=== PATIENT | male | born 1975 | race Caucasian/White ===

== ENCOUNTER → 2016-10-19 | Outpatient (CLI) | payer OTHER ==
--- NOTE | 2016-10-26 19:34 | SLEEPHOME ---
DATE OF PROCEDURE: 10/19/2016 REFERRING PROVIDER: SAMSON Retana INTERPRETATION: Diagnostic home sleep testing was performed due to concern for sleep apnea syndrome with symptoms consisting of excessive daytime sleepiness, impaired cognition, mood disorders, snoring, morning headaches, and nonrestorative sleep. The patient had a previous home sleep study on 09/02/2016. However, the study was limited because of a long of period when SpO2 was not available and therefore hypopneas could not be determined. It was felt his risk for sleep apnea was high so the study was repeated. Portable home monitoring was performed using a NOX-T3 respiratory monitoring device. Continuous record was made of the pulse, oxygen saturation, air flow, chest and abdominal strain, and body position. A total recording time of 7 hours and 22 minutes was reviewed. During this interval, 82 apneic events of 10 seconds or greater were identified that were predominately obstructive in origin and 88 hypopneic events were identified of 10 seconds in duration or greater. This gives an index of 23.1. The patient's baseline saturation was 92% with a minimum recorded valve of 81%. Average pulse rate was 72 beats per minute. The patient spent most of the study in the non-supine position, although a significant amount of supine sleep was also observed. IMPRESSION: Abnormal home sleep test with repetitive respiratory events. The index was 23.1. Oxygen saturation modesta of 81%. RECOMMENDATIONS: The above findings are consistent with obstructive sleep apnea. Recommend formal polysomnogram for the determination of pressure therapy. Edited 10/30/16 1157 wilfredo GUY
== END ==
LOC: M SLEEP HO 12:00
PROVIDERS: ATTEND Internal Medicine Pulmonary Disease
DX: G47.30 Sleep apnea, unspecified (principal)

== ENCOUNTER → 2018-06-09 | Outpatient (REF) | payer OTHER ==
[2018-06-09 13:07] LABS: ALBUMIN 3.7 GM/DL (3.2-5.2); ALKALINE PHOSPHATASE 102 U/L (45-117); ALT/SGPT 40 U/L (12-78); ANION GAP 9 MEQ/L (8-16); AST/SGOT 19 U/L (7-37); BILIRUBIN,TOTAL 0.4 MG/DL (0.2-1.0); BLOOD UREA NITROGEN 13 MG/DL (7-18); CALCIUM LEVEL 8.6 MG/DL (8.5-10.1); CARBON DIOXIDE LEVEL 24 MEQ/L (21-32); CHLORIDE LEVEL 111 MEQ/L (98-107); CHOLESTEROL LEVEL 191 MG/DL (<200); CHOLESTEROL RISK RATIO 5.787 (<5); CREATININE FOR GFR 0.97 MG/DL (0.70-1.30); GLOMERULAR FILTRATION RATE > 60.0 (>60); GLUCOSE, FASTING 70 MG/DL (70-100); HDL CHOLESTEROL 33 MG/DL (>40); LDL CHOLESTEROL 126 MG/DL (<100); NON-HDL-C 158 MG/DL; POTASSIUM SERUM 4.7 MEQ/L (3.5-5.1); SODIUM LEVEL 144 MEQ/L (136-145); TOTAL PROTEIN 7.4 GM/DL (6.4-8.2); TRIGLYCERIDES LEVEL 161 MG/DL (<150)
[2018-06-09 13:16] LABS: HEMATOCRIT 47.4 % (42.0-52.0); MEAN CORPUSCULAR HEMOGLOBIN 30.9 pg (27.0-33.0); MEAN CORPUSCULAR HGB CONC 33.8 g/dl (32.0-36.5); MEAN CORPUSCULAR VOLUME 91.7 fl (80.0-96.0); PLATELET COUNT, AUTOMATED 244 10^3/uL (150-450); RED BLOOD COUNT 5.17 10^6/uL (4.30-6.10); RED CELL DISTRIBUTION WIDTH 11.8 % (11.5-14.5); WHITE BLOOD COUNT 7.1 10^3/uL (4.0-10.0)
== END ==
LOC: M SFHCPLAZ 08:50
DX: Z00.00 Encounter for general adult medical examination without abnormal findings (principal)

== ENCOUNTER → 2019-04-12 | Outpatient (CLI) | payer OTHER ==
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
== END ==
LOC: M PAIN 14:15
PROVIDERS: ATTEND Anesthesiology
DX: M25.512 Pain in left shoulder (principal); G89.29 Other chronic pain; M79.2 Neuralgia and neuritis, unspecified; G47.33 Obstructive sleep apnea (adult) (pediatric); F17.210 Nicotine dependence, cigarettes, uncomplicated; Z79.899 Other long term (current) drug therapy

== ENCOUNTER → 2020-02-27 | Outpatient (CLI) | payer OTHER ==
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
== END ==
LOC: M PAIN 09:45
PROVIDERS: ATTEND Family Medicine
DX: M25.512 Pain in left shoulder (principal)

== ENCOUNTER → 2020-03-26 | Outpatient (CLI) | payer OTHER ==
[~2020-03-26] MED LIST: DICL50TAB; GABA600T4 PO; HYDR-3713; IBUP200C25 PO; OMEP-221 PO; PERC5TAB12 PO
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
== END ==
LOC: M PAIN 09:30
PROVIDERS: ATTEND Family Medicine
DX: M25.512 Pain in left shoulder (principal)

== ENCOUNTER → 2020-04-23 | Outpatient (CLI) | payer OTHER | LOC: M PAIN 10:45 | PROVIDERS: ATTEND Family Medicine | DX: M25.512 Pain in left shoulder (principal) ==

== ENCOUNTER 2020-07-25 12:42 | Emergency (ER) | payer OTHER ==
[~2020-07-25] VITALS: Ht 167.6 cm; Wt 86.4 kg
[2020-07-25] MEDS ORDERED: DICL50TAB (13:09)
[2020-07-25] MEDS ORDERED: IBUP200C25 PO (13:09)
[2020-07-25] MEDS ORDERED: HYDR-3713 (13:09)
[2020-07-25] MEDS ORDERED: OMEP-221 PO (13:09)
[2020-07-25] MEDS ORDERED: GABA600T4 PO (13:09)
--- NOTE | 2020-07-25 13:45 | REP ---
INDICATION: trauma. COMPARISON: Left foot this date TECHNIQUE: Four views FINDINGS: Distal tibia and fibular without a displaced fracture. However there is prominent soft tissue swelling over the anterolateral aspect of the ankle. Talar dome shows no osteochondral defect and the mortise joint is preserved. Subtalar joints maintain their normal relationship. However, there is a comminuted fracture in the body and anterior process of the calcaneus possible subtalar extension. IMPRESSION: Prominent soft tissue swelling with anterolateral aspect of the ankle without definite fracture of the distal tibia or fibula and with the talus and mortise joint intact. There is a comminuted fracture of the body and anterior process of the calcaneus and some intra-articular extension to subtalar joint is suggested. The calcaneocuboid joint appears grossly intact. <Electronically signed by Jaime Grubbs > 07/25/20 [id number]
--- NOTE | 2020-07-25 13:51 | REP ---
INDICATION: trauma. COMPARISON: Ankle series today TECHNIQUE: Four views FINDINGS: Prominent soft tissue swelling lateral aspect of the ankle and hindfoot. Distal tibia and fibular without definite fracture. Talus is grossly intact. There is a comminuted fracture of the body and neck of the the calcaneus with extension to the subtalar joint. The calcaneocuboid articulation maintains its relationship. The talonavicular joint and navicular were intact there is an accessory ossicle medial to the navicular which has 2 parts. This could be a fracture of that accessory ossicle as there is swelling medially but also could represent a 2 part accessory ossicle without acute injury. The tarsal bones, metatarsals and phalanges are intact. IMPRESSION: Comminuted fracture of body and neck of the calcaneus with subtalar joint extension of the fracture and with grossly intact calcaneocuboid articulation. No definite talar fracture and the talonavicular joint, distal tibia and fibula appear grossly intact. The metatarsals, tarsal bones and phalanges with associated joints are intact. Accessory ossicle with fracture or two adjacent ossicles at the proximal medial aspect of the navicular. See comment above. <Electronically signed by Jaime Grubbs > 07/25/20 [id number]
--- NOTE | 2020-07-25 15:05 | REP ---
INDICATION: heel tenderness, fall from 6 ft ladder. COMPARISON: 08/01/2013 TECHNIQUE: Four views FINDINGS: The distal tibia and fibula are without visible of fracture. There is an os trigonum posterior to the talus. No gross evidence of fracture of the talus or calcaneus. Subtalar joints are intact there are smoothly marginated paired accessory ossicles adjacent to the medial head of the navicular. Talonavicular and calcaneocuboid joints are normal. The tarsal bones and articulations and the metatarsals are intact MTP joints, phalanges and IP joints intact IMPRESSION: 1. No evidence of fracture, avulsion, subluxation or other acute bony finding about the right foot <Electronically signed by Jaime Grubbs > 07/25/20 [id number]
[2020-07-25] MEDS ORDERED: MORPHINE 4 MG/ML 1ML VIAL/SYRINGE (J2270) IM ONE (15:15)
[2020-07-25] MEDS ORDERED: ONDANSETRON 4 MG ORAL DISINTEGRATING TAB PO ONE (15:15)
--- NOTE | 2020-07-25 15:22 | REP ---
INDICATION: fall from 6 ft ladder. COMPARISON: None. TECHNIQUE: Helical scanning is acquired and 4 mm axial images are generated. Coronal and sagittal MPR images are generated. FINDINGS: Lumbar vertebral body heights are preserved. Alignment is normal. There is degenerative disc disease with narrowing and vacuum phenomena at L5-S1. Mild diffuse central disc bulging is seen at L5-S1. There is no evidence of spondylolysis or spondylolisthesis. No vertebral body fracture or collapse is observed. No transverse process pedicle or posterior element fracture is seen. No paravertebral hematoma is appreciated. There are surgical clips visible in the right lower quadrant. Coronal and sagittal MPR images show no evidence of fracture. IMPRESSION: Degenerative disc disease at L5-S1 and to a lesser extent, L4-5. No traumatic abnormality noted. <Electronically signed by Josef Lomas > 07/25/20 [id number]
--- NOTE | 2020-07-25 15:53 | REP ---
INDICATION: further eval calcaneal fracture. COMPARISON: Ankle and foot series this date TECHNIQUE: Axial soft tissue and bone window through the ankle with coronal and sagittal bone window reconstructions FINDINGS: There is a severely comminuted fracture involving the body and neck/anterior process of the calcaneus are intra-articular extensions along its posterior subtalar aspect both anterior and posterior margins that joint articulation. There are a few small fragments from the fracture that may be into the joint proper posteriorly in the 1-2 mm range. Also fracture involvement of the articular aspect of the calcaneus at the cuboid and of anterior and middle subtalar joints fracture extensions are noted as well. Fractures through the base of the sustentacular. No subluxation or dislocation of the subtalar joints or hindfoot. Distal tibia and fibula were intact. The talus shows no fracture. The mortise joint was preserved. There is no osteochondral defect of the talar dome. A small Achilles insertion spur on the sagittal reconstructions is noted. The tarsal bones and proximal metatarsals included show no fracture. There are 2 small ossific densities adjacent to the medial margin of the navicular representing 2 separate ossific densities, not an acute fracture of 1 accessory ossicle. Prominent soft tissue swelling about the lateral ankle. IMPRESSION: Severely comminuted fracture of body of the calcaneus and its anterior process with intra-articular extension to all 3 components of the subtalar joint as well as the sustentaculum. Fracture line also reaches the calcanealcuboid joint but without fractures of the talus, distal tibia and fibula, tarsal bones or visible metatarsals. Multiple tiny fragments about this comminuted fracture noted and there may be a few intra-articular 2 mm foci in the posterior aspect of the posterior subtalar joint and joint recess behind it. <Electronically signed by Jaime Grubbs > 07/25/20 [id number]
[2020-07-25] MEDS ORDERED: PERCOCET 5MG/325MG TAB PO ONE (16:30)
[2020-07-25] MEDS ORDERED: PERC5TAB12 PO (16:35)
[2020-07-25 17:14] VITALS: BP 155/83
== END 2020-07-25 17:19 | disposition home or self-care (01) ==
LOC: M ED 12:42
DX: S92.002A Unspecified fracture of left calcaneus, initial encounter for closed fracture (principal); W11.XXXA Fall on and from ladder, initial encounter; Y92.9 Unspecified place or not applicable; Y93.9 Activity, unspecified; Y99.9 Unspecified external cause status; Z79.891 Long term (current) use of opiate analgesic; Z79.899 Other long term (current) drug therapy
CPT/HCPCS: 72131; 73610; 73630; 73700; 96372; 99284; J2270; Q0162

== ENCOUNTER → 2020-07-25 | Outpatient (CLI) | payer OTHER ==
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
== END ==
LOC: M PAIN 09:00
PROVIDERS: ATTEND Family Medicine
DX: M25.512 Pain in left shoulder (principal); G89.29 Other chronic pain; G47.33 Obstructive sleep apnea (adult) (pediatric); F17.210 Nicotine dependence, cigarettes, uncomplicated; Z79.899 Other long term (current) drug therapy

== ENCOUNTER → 2020-09-24 | Outpatient (CLI) | payer OTHER ==
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
== END ==
LOC: M PAIN 09:00
PROVIDERS: ATTEND Family Medicine
DX: M25.512 Pain in left shoulder (principal); G89.29 Other chronic pain; G47.33 Obstructive sleep apnea (adult) (pediatric); F17.210 Nicotine dependence, cigarettes, uncomplicated; Z79.899 Other long term (current) drug therapy

== ENCOUNTER → 2020-11-07 | Outpatient (CLI) | payer OTHER ==
[~2020-11-07] MED LIST changes: -HYDR-3713; +HYDR-3713 PO; +NO ITAB PO
== END ==
LOC: M LABSMTC 09:59
PROVIDERS: ATTEND Anesthesiology
DX: Z01.812 Encounter for preprocedural laboratory examination (principal); Z20.822 Contact with and (suspected) exposure to COVID-19

== ENCOUNTER 2020-11-12 08:17 | Day surgery (SDC) | payer OTHER ==
[~2020-11-12] VITALS: Ht 167.6 cm; Wt 89.4 kg
[~2020-11-12 08:17] MED LIST changes: +NS 1,000 ML IV ONE
[2020-11-12] MEDS ORDERED: DICL50TAB PO (09:10)
[2020-11-12] MEDS ORDERED: propofoL 200 MG/20 ML VIAL As Ordered ONE (09:50)
[2020-11-12] MEDS ORDERED: LIDOCAINE 2% 100MG/5ML SDV (FOR ANES.) As Ordered ONE (09:50)
--- NOTE | 2020-11-12 10:20 | ROOR ---
Patient Name: Felton Wild Procedure Date: 11/12/2020 10:01 AM Date of : 1975 Age: 45 Room: [facility] Gender: Male Note Status: Finalized Procedure: Colonoscopy Indications: Screening in patient at increased risk: Colorectal cancer in father before age 60 Providers: Ricco STERN MD Referring MD: Niharika Bansal NP Requesting Provider: Medicines: Monitored Anesthesia Care Complications: No immediate complications. Procedure: Pre-Anesthesia Assessment: - The heart rate, respiratory rate, oxygen saturations, blood pressure, adequacy of pulmonary ventilation, and response to care were monitored throughout the procedure. The Colonoscope was introduced through the anus and advanced to the terminal ileum, with identification of the appendiceal orifice and IC valve. The colonoscopy was performed without difficulty. The patient tolerated the procedure well. The quality of the bowel preparation was good. Findings: The perianal and digital rectal examinations were normal. A few small sigmoid diverticula and small internal hemorrhoids. The exam was otherwise without abnormality on direct and retroflexion views. Impression: - Minimal sigmoid diverticulosis and small internal hemorrhoids. - The examination was otherwise normal on direct and retroflexion views. - No specimens collected. Recommendation: - Repeat colonoscopy in 5 years for screening purposes. - Use fiber, for example Citrucel, Fibercon, Konsyl or Metamucil. Procedure Code(s): --- Professional --- 10785, Colonoscopy, flexible; diagnostic, including collection of specimen(s) by brushing or washing, when performed (separate procedure) Diagnosis Code(s): --- Professional --- Z80.0, Family history of malignant neoplasm of digestive organs CPT copyright 2019 [employer]. All rights reserved. The codes documented in this report are preliminary and upon physician coder review may be revised to meet current compliance requirements. Ricco Stern MD Ricco STERN MD 11/12/2020 10:20:25 AM Electronically signed by Ricco STERN MD Number of Addenda: 0 Note Initiated On: 11/12/2020 10:01 AM Estimated Blood Loss: Estimated blood loss: none.
[2020-11-12 10:22] VITALS: BP 119/59
== END 2020-11-12 10:58 | disposition home or self-care (01) ==
LOC: M OPP 08:17
PROVIDERS: ATTEND Internal Medicine Gastroenterology
DX: Z12.11 Encounter for screening for malignant neoplasm of colon (principal); Z80.0 Family history of malignant neoplasm of digestive organs; K57.30 Diverticulosis of large intestine without perforation or abscess without bleeding; K64.8 Other hemorrhoids; K21.9 Gastro-esophageal reflux disease without esophagitis; Z79.891 Long term (current) use of opiate analgesic; Z79.899 Other long term (current) drug therapy

== ENCOUNTER → 2020-12-10 | Outpatient (CLI) | payer OTHER ==
[~2020-12-10] MED LIST changes: +DICL50TAB PO; -NS 1,000 ML IV ONE
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
== END ==
LOC: M PAIN 09:30
PROVIDERS: ATTEND Family Medicine
DX: M25.512 Pain in left shoulder (principal); G89.29 Other chronic pain; G47.33 Obstructive sleep apnea (adult) (pediatric); F17.210 Nicotine dependence, cigarettes, uncomplicated; Z79.899 Other long term (current) drug therapy

== ENCOUNTER → 2021-02-14 | Outpatient (CLI) | payer OTHER ==
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
== END ==
LOC: M PAIN 10:15
PROVIDERS: ATTEND Family Medicine
DX: M25.512 Pain in left shoulder (principal); G89.29 Other chronic pain; G47.33 Obstructive sleep apnea (adult) (pediatric); F17.210 Nicotine dependence, cigarettes, uncomplicated; Z79.899 Other long term (current) drug therapy

== ENCOUNTER → 2021-04-24 | Outpatient (CLI) | payer OTHER | LOC: M PAIN 10:45 | PROVIDERS: ATTEND Anesthesiology | DX: M25.512 Pain in left shoulder (principal); M79.2 Neuralgia and neuritis, unspecified; G47.33 Obstructive sleep apnea (adult) (pediatric); F17.210 Nicotine dependence, cigarettes, uncomplicated; Z79.899 Other long term (current) drug therapy ==

== ENCOUNTER → 2021-08-14 | Outpatient (CLI) | payer OTHER ==
[2021-08-14 07:21] LABS: HEMOGLOBIN 14.5 g/dl (13.5-17.5); MEAN CORPUSCULAR HEMOGLOBIN 31.6 pg (27.0-33.0); MEAN CORPUSCULAR VOLUME 95.9 fl (80.0-96.0); PLATELET COUNT, AUTOMATED 176 10^3/uL (150-450); RED BLOOD COUNT 4.59 10^6/uL (4.30-6.10); WHITE BLOOD COUNT 7.9 10^3/uL (4.0-10.0)
[2021-08-14 07:41] LABS: HEMOGLOBIN A1c 5.1 %
[2021-08-14 07:54] LABS: ALBUMIN 3.6 GM/DL (3.2-5.2); ALT/SGPT 38 U/L (12-78); BILIRUBIN,TOTAL 0.7 MG/DL (0.2-1.0); BLOOD UREA NITROGEN 15 MG/DL (7-18); CALCIUM LEVEL 9.2 MG/DL (8.5-10.1); CARBON DIOXIDE LEVEL 30 MEQ/L (21-32); CHLORIDE LEVEL 109 MEQ/L (98-107); CHOLESTEROL LEVEL 171 MG/DL (<200); FERRITIN 164 NG/ML (26-388); GLOMERULAR FILTRATION RATE > 60.0 (>60); GLUCOSE, FASTING 95 MG/DL (70-100); HDL CHOLESTEROL 36 MG/DL (>40); IRON (FE) 61 UG/DL (65-175); LDL CHOLESTEROL 106 MG/DL (<100); NON-HDL-C 135 MG/DL; PERCENT SATURATION 23.6 % (19.7-50.0); POTASSIUM SERUM 4.9 MEQ/L (3.5-5.1); SODIUM LEVEL 143 MEQ/L (136-145); TOTAL IRON BINDING CAPACITY 259 UG/DL (250-450); TOTAL PROTEIN 6.7 GM/DL (6.4-8.2); TRIGLYCERIDES LEVEL 143 MG/DL (<150)
== END ==
LOC: M LAB 06:48
PROVIDERS: ATTEND Nurse Practitioner Adult Health
DX: Z00.00 Encounter for general adult medical examination without abnormal findings (principal); D50.9 Iron deficiency anemia, unspecified; Z13.1 Encounter for screening for diabetes mellitus; Z13.220 Encounter for screening for lipoid disorders; Z13.29 Encounter for screening for other suspected endocrine disorder

== ENCOUNTER → 2021-09-25 | Outpatient (CLI) | payer BC, OTHER ==
[~2021-09-25] MED LIST changes: -OMEP-221 PO; +OMEP40CA5 PO
== END ==
LOC: M PAIN 10:00
PROVIDERS: ATTEND Anesthesiology
DX: M25.512 Pain in left shoulder (principal); M79.2 Neuralgia and neuritis, unspecified; G89.29 Other chronic pain; G47.33 Obstructive sleep apnea (adult) (pediatric); F17.210 Nicotine dependence, cigarettes, uncomplicated; Z79.899 Other long term (current) drug therapy

== ENCOUNTER → 2021-12-18 | Outpatient (CLI) | payer MEDICAID, OTHER, SELFPAY | LOC: M PAIN 09:30 | PROVIDERS: ATTEND Anesthesiology | DX: M25.512 Pain in left shoulder (principal); G89.29 Other chronic pain; M79.2 Neuralgia and neuritis, unspecified; G47.33 Obstructive sleep apnea (adult) (pediatric); F17.210 Nicotine dependence, cigarettes, uncomplicated; Z79.899 Other long term (current) drug therapy ==

== ENCOUNTER → 2022-03-09 | Outpatient (CLI) | payer MEDICAID ==
[~2022-03-09] MED LIST changes: +methylPREDNISolone SUSP 40MG/ML 1ML VIAL (DEPO MEDROL) As Ordered ONE
== END ==
LOC: M PAIN 10:15
PROVIDERS: ATTEND Nurse Practitioner Family
DX: M25.512 Pain in left shoulder (principal); G89.29 Other chronic pain; G47.33 Obstructive sleep apnea (adult) (pediatric); F17.210 Nicotine dependence, cigarettes, uncomplicated; Z79.899 Other long term (current) drug therapy

== ENCOUNTER → 2022-05-08 | Outpatient (CLI) | payer OTHER ==
[~2022-05-08] MED LIST changes: -methylPREDNISolone SUSP 40MG/ML 1ML VIAL (DEPO MEDROL) As Ordered ONE
== END ==
LOC: M PAIN 09:00
PROVIDERS: ATTEND Anesthesiology
DX: M25.512 Pain in left shoulder (principal); G89.29 Other chronic pain; M79.2 Neuralgia and neuritis, unspecified; G47.33 Obstructive sleep apnea (adult) (pediatric); F17.210 Nicotine dependence, cigarettes, uncomplicated; Z79.899 Other long term (current) drug therapy

== ENCOUNTER → 2022-06-24 | Outpatient (CLI) | payer OTHER | LOC: M PAIN 11:15 | PROVIDERS: ATTEND Anesthesiology | DX: M25.512 Pain in left shoulder (principal); G89.29 Other chronic pain; G47.33 Obstructive sleep apnea (adult) (pediatric); F17.210 Nicotine dependence, cigarettes, uncomplicated; Z79.899 Other long term (current) drug therapy ==

== ENCOUNTER → 2022-08-26 | Outpatient (CLI) | payer OTHER | LOC: M PAIN 13:45 | PROVIDERS: ATTEND Anesthesiology | DX: M25.512 Pain in left shoulder (principal); M79.2 Neuralgia and neuritis, unspecified; G47.33 Obstructive sleep apnea (adult) (pediatric); F17.210 Nicotine dependence, cigarettes, uncomplicated; Z79.899 Other long term (current) drug therapy ==

== ENCOUNTER → 2022-09-10 | Outpatient (CLI) | payer OTHER ==
[2022-09-10 11:46] LABS: HEMOGLOBIN 14.5 g/dl (13.5-17.5); MEAN CORPUSCULAR HEMOGLOBIN 31.9 pg (27.0-33.0); MEAN CORPUSCULAR HGB CONC 33.7 g/dl (32.0-36.5); MEAN CORPUSCULAR VOLUME 94.5 fl (80.0-96.0); PLATELET COUNT, AUTOMATED 230 10^3/uL (150-450); RED BLOOD COUNT 4.55 10^6/uL (4.30-6.10); WHITE BLOOD COUNT 8.1 10^3/uL (4.0-10.0)
[2022-09-10 12:10] LABS: IRON (FE) 31 UG/DL (65-175)
[2022-09-10 12:11] LABS: ALBUMIN 3.8 G/DL (3.2-5.2); ALKALINE PHOSPHATASE 78 U/L (46-116); ALT/SGPT 22 U/L (7.0-40); AST/SGOT 20 U/L (<34); BILIRUBIN,TOTAL 0.8 MG/DL (0.3-1.2); BLOOD UREA NITROGEN 11 MG/DL (9-23); CALCIUM LEVEL 9.5 MG/DL (8.5-10.1); CARBON DIOXIDE LEVEL 30 MMOL/L (20-31); CHLORIDE LEVEL 104 MMOL/L (98-107); CHOLESTEROL LEVEL 147 MG/DL (<200); CHOLESTEROL RISK RATIO 3.75 (<5); GLOMERULAR FILTRATION RATE > 60.0 (>60); GLUCOSE, FASTING 67 MG/DL (60-100); HDL CHOLESTEROL 39.2 MG/DL (>40); LDL CHOLESTEROL 87.8 MG/DL (<100); NON-HDL-C 108 MG/DL; PERCENT SATURATION 10.4 % (19.7-50.0); POTASSIUM SERUM 4.9 MMOL/L (3.5-5.1); SODIUM LEVEL 140 MMOL/L (136-145); TOTAL IRON BINDING CAPACITY 299 UG/DL (250-425); TOTAL PROTEIN 6.8 G/DL (5.7-8.2); TRIGLYCERIDES LEVEL 100 MG/DL (<150)
[2022-09-10 12:15] LABS: FERRITIN 98.5 NG/ML (10.5-307.3); THYROID STIMULATING HORMONE 2.656 uIU/ML (0.55-4.78)
[2022-09-10 12:17] LABS: HEMOGLOBIN A1c 4.6 % (4.0-6.0)
== END ==
LOC: M PLALAB 08:34
PROVIDERS: ATTEND Nurse Practitioner Adult Health
DX: Z00.00 Encounter for general adult medical examination without abnormal findings (principal); Z13.1 Encounter for screening for diabetes mellitus; D50.9 Iron deficiency anemia, unspecified

== ENCOUNTER → 2022-12-16 | Outpatient (CLI) | payer OTHER | LOC: M PAIN 09:30 | PROVIDERS: ATTEND Anesthesiology | DX: M25.512 Pain in left shoulder (principal); M79.2 Neuralgia and neuritis, unspecified; G47.33 Obstructive sleep apnea (adult) (pediatric); F17.210 Nicotine dependence, cigarettes, uncomplicated; Z79.899 Other long term (current) drug therapy ==

== ENCOUNTER → 2023-01-14 | Outpatient (CLI) | payer OTHER | LOC: M PAIN 10:00 | PROVIDERS: ATTEND Nurse Practitioner Family | DX: M25.512 Pain in left shoulder (principal); M79.2 Neuralgia and neuritis, unspecified; G47.33 Obstructive sleep apnea (adult) (pediatric); F17.210 Nicotine dependence, cigarettes, uncomplicated; Z79.899 Other long term (current) drug therapy ==

== ENCOUNTER → 2023-04-08 | Outpatient (CLI) | payer OTHER | LOC: M PAIN 15:15 | PROVIDERS: ATTEND Nurse Practitioner Family | DX: M25.512 Pain in left shoulder (principal); G89.29 Other chronic pain; M79.2 Neuralgia and neuritis, unspecified; G47.33 Obstructive sleep apnea (adult) (pediatric); F17.210 Nicotine dependence, cigarettes, uncomplicated; Z79.899 Other long term (current) drug therapy ==

== ENCOUNTER → 2023-06-08 | Outpatient (CLI) | payer OTHER | LOC: M PAIN 09:45 | PROVIDERS: ATTEND Nurse Practitioner Family | DX: M25.512 Pain in left shoulder (principal); G89.29 Other chronic pain; M79.2 Neuralgia and neuritis, unspecified; F17.210 Nicotine dependence, cigarettes, uncomplicated; Z80.0 Family history of malignant neoplasm of digestive organs; Z79.899 Other long term (current) drug therapy ==

== ENCOUNTER → 2023-09-07 | Outpatient (CLI) | payer OTHER | LOC: M PAIN 10:00 | PROVIDERS: ATTEND Nurse Practitioner Family | DX: M25.512 Pain in left shoulder (principal); G89.29 Other chronic pain; F17.210 Nicotine dependence, cigarettes, uncomplicated; Z80.0 Family history of malignant neoplasm of digestive organs; Z80.8 Family history of malignant neoplasm of other organs or systems; Z79.899 Other long term (current) drug therapy ==

== ENCOUNTER → 2023-09-08 | Outpatient (CLI) | payer OTHER ==
[2023-09-08 12:34] LABS: HEMATOCRIT 43.4 % (42.0-52.0); HEMOGLOBIN 14.1 g/dl (13.5-17.5); MEAN CORPUSCULAR HEMOGLOBIN 31.2 pg (27.0-33.0); MEAN CORPUSCULAR HGB CONC 32.5 g/dl (32.0-36.5); PLATELET COUNT, AUTOMATED 238 10^3/uL (150-450); RED BLOOD COUNT 4.52 10^6/uL (4.30-6.10); WHITE BLOOD COUNT 7.2 10^3/uL (4.0-10.0)
[2023-09-08 12:46] LABS: IRON (FE) 84 UG/DL (65-175)
[2023-09-08 12:47] LABS: ALBUMIN 3.7 G/DL (3.2-5.2); ALKALINE PHOSPHATASE 78 U/L (46-116); ALT/SGPT 20 U/L (7.0-40); AST/SGOT 15 U/L (<34); BILIRUBIN,TOTAL 0.6 MG/DL (0.3-1.2); BLOOD UREA NITROGEN 7 MG/DL (9-23); CALCIUM LEVEL 9.3 MG/DL (8.5-10.1); CARBON DIOXIDE LEVEL 29 MMOL/L (20-31); CHLORIDE LEVEL 107 MMOL/L (98-107); CHOLESTEROL LEVEL 170 MG/DL (<200); CHOLESTEROL RISK RATIO 4.85 (<5); CREATININE FOR GFR 0.69 MG/DL (0.70-1.30); FERRITIN 143.8 NG/ML (10.5-307.3); GLOMERULAR FILTRATION RATE > 60.0 (>60); GLUCOSE, FASTING 99 MG/DL (60-100); LDL CHOLESTEROL 102.8 MG/DL (<100); POTASSIUM SERUM 4.5 MMOL/L (3.5-5.1); SODIUM LEVEL 142 MMOL/L (136-145); THYROID STIMULATING HORMONE 1.071 uIU/ML (0.55-4.78); TOTAL PROTEIN 6.5 G/DL (5.7-8.2); TRIGLYCERIDES LEVEL 161 MG/DL (<150)
== END ==
LOC: M PLALAB 09:37
PROVIDERS: ATTEND Nurse Practitioner Adult Health
DX: Z00.00 Encounter for general adult medical examination without abnormal findings (principal); D50.9 Iron deficiency anemia, unspecified; Z13.1 Encounter for screening for diabetes mellitus; Z13.220 Encounter for screening for lipoid disorders; Z13.29 Encounter for screening for other suspected endocrine disorder

== ENCOUNTER → 2023-10-08 | Outpatient (CLI) | payer OTHER | LOC: M PAIN 09:30 | PROVIDERS: ATTEND Nurse Practitioner Family | DX: M25.512 Pain in left shoulder (principal); G89.29 Other chronic pain; G47.33 Obstructive sleep apnea (adult) (pediatric); F17.210 Nicotine dependence, cigarettes, uncomplicated; Z79.891 Long term (current) use of opiate analgesic; Z79.899 Other long term (current) drug therapy ==

== ENCOUNTER → 2023-11-01 | Outpatient (CLI) | payer OTHER | LOC: M PAIN 09:45 | PROVIDERS: ATTEND Nurse Practitioner Family | DX: M25.512 Pain in left shoulder (principal); G89.29 Other chronic pain; G47.33 Obstructive sleep apnea (adult) (pediatric); F17.210 Nicotine dependence, cigarettes, uncomplicated; Z79.891 Long term (current) use of opiate analgesic; Z79.899 Other long term (current) drug therapy ==

== ENCOUNTER → 2023-11-29 | Outpatient (CLI) | payer OTHER | LOC: M PAIN 11:00 | PROVIDERS: ATTEND Nurse Practitioner Family | DX: M25.512 Pain in left shoulder (principal); Z79.891 Long term (current) use of opiate analgesic; Z79.899 Other long term (current) drug therapy; F17.200 Nicotine dependence, unspecified, uncomplicated; D50.9 Iron deficiency anemia, unspecified; G47.33 Obstructive sleep apnea (adult) (pediatric); M19.012 Primary osteoarthritis, left shoulder ==

== ENCOUNTER → 2024-02-10 | Outpatient (CLI) | payer OTHER | LOC: M PAIN 11:15 | PROVIDERS: ATTEND Nurse Practitioner Family | DX: M25.512 Pain in left shoulder (principal); F17.200 Nicotine dependence, unspecified, uncomplicated; G47.33 Obstructive sleep apnea (adult) (pediatric); Z79.899 Other long term (current) drug therapy; Z79.891 Long term (current) use of opiate analgesic ==

== ENCOUNTER → 2024-08-07 | Outpatient (CLI) | payer OTHER ==
[~2024-08-07] MED LIST changes: +GABA-1490 PO; -GABA600T4 PO
== END ==
LOC: M PAIN 17:00
PROVIDERS: ATTEND Nurse Practitioner Family
DX: M25.512 Pain in left shoulder (principal); G47.33 Obstructive sleep apnea (adult) (pediatric); F17.210 Nicotine dependence, cigarettes, uncomplicated; Z79.899 Other long term (current) drug therapy

== ENCOUNTER → 2025-01-31 | Outpatient (REF) | payer OTHER ==
[2025-01-31 15:59] LABS: HEMATOCRIT 46.3 % (42.0-52.0); HEMOGLOBIN 15.6 g/dl (13.5-17.5); MEAN CORPUSCULAR HEMOGLOBIN 31.2 pg (27.0-33.0); MEAN CORPUSCULAR HGB CONC 33.7 g/dl (32.0-36.5); MEAN CORPUSCULAR VOLUME 92.6 fl (80.0-96.0); PLATELET COUNT, AUTOMATED 227 10^3/uL (150-450); WHITE BLOOD COUNT 9.8 10^3/uL (4.0-10.0)
[2025-01-31 16:15] LABS: HEMOGLOBIN A1c 4.9 % (4.0-6.0)
[2025-01-31 16:32] LABS: FERRITIN 114.3 NG/ML (10.5-307.3); THYROID STIMULATING HORMONE 1.526 uIU/ML (0.55-4.78); TOTAL IRON BINDING CAPACITY 326 UG/DL (250-425)
[2025-01-31 16:33] LABS: ALBUMIN 4.1 G/DL (3.2-5.2); ALKALINE PHOSPHATASE 92 U/L (40-129); ALT/SGPT 40 U/L (7.0-40); AST/SGOT 26 U/L (<34); BILIRUBIN,TOTAL 1.1 MG/DL (0.3-1.2); BLOOD UREA NITROGEN 12 MG/DL (9-23); CALCIUM LEVEL 8.9 MG/DL (8.5-10.1); CARBON DIOXIDE LEVEL 27 MMOL/L (20-31); CHLORIDE LEVEL 108 MMOL/L (98-107); CHOLESTEROL LEVEL 186 MG/DL (<200); CHOLESTEROL RISK RATIO 3.86 (<5); CREATININE FOR GFR 0.74 MG/DL (0.70-1.30); GLOMERULAR FILTRATION RATE > 90.0 (>60); GLUCOSE, FASTING 90 MG/DL (60-100); HDL CHOLESTEROL 48.1 MG/DL (>40); IRON (FE) 115 UG/DL (65-175); LDL CHOLESTEROL 113.7 MG/DL (<100); NON-HDL-C 137.9 MG/DL; PERCENT SATURATION 35.3 % (19.7-50.0); POTASSIUM SERUM 4.3 MMOL/L (3.5-5.1); SODIUM LEVEL 142 MMOL/L (136-145); TOTAL PROTEIN 7.3 G/DL (5.7-8.2); TRIGLYCERIDES LEVEL 121 MG/DL (<150)
[2025-01-31 16:35] LABS: FREE T4 1.42 NG/DL (0.89-1.76)
== END ==
LOC: M SFHCPLAZ 11:10
PROVIDERS: ATTEND Nurse Practitioner Adult Health
DX: Z00.00 Encounter for general adult medical examination without abnormal findings (principal); D50.9 Iron deficiency anemia, unspecified; Z13.1 Encounter for screening for diabetes mellitus; Z13.220 Encounter for screening for lipoid disorders; Z13.29 Encounter for screening for other suspected endocrine disorder